=== PATIENT | male | born 1935 | race Caucasian/White ===

== ENCOUNTER → 2018-08-05 | Outpatient (REF) | payer MEDICARE ==
[~2018-08-05] MED LIST: FLOMAX0.4 M1 PO; LIPITOR10 M1 PO; PLAVIX75 MG PO; ZETIA10 MG PO
[2018-08-05 08:33] LABS: HEMATOCRIT 42.9 % (39.0-50.0); HEMOGLOBIN 14.6 g/dl (14.0-18.0); IMMATURE GRANULOCYTES 0.3 % (0.0-5.0); MEAN CELL VOLUME 103.6 fL CALC (80.0-100.0); MEAN CORPUSCULAR HGB 35.3 pG CALC (26.0-32.0); NEUT# 4.02 thou/uL (1.82-7.42); RED BLOOD COUNT 4.14 mill/uL (4.70-6.10); RED CELL DISTRI WIDTH 12.8 % (11.5-15.5)
[2018-08-05 09:47] LABS: ALBUMIN 3.9 g/dL (3.2-5.0); BILIRUBIN, TOTAL 0.9 mg/dL (0.0-1.4); CHOLESTEROL HDL RATIO 2.8 (<4.4 (CALC)); CREATININE 1.4 mg/dL (0.7-1.3); POTASSIUM 4.6 mmol/l (3.5-5.1); TOTAL PROTEIN 6.6 g/dL (6.3-8.2)
== END | disposition home or self-care (01) ==
LOC: LAB 07:23
PROVIDERS: ATTEND Internal Medicine
DX: E03.9 Hypothyroidism, unspecified (principal); E11.65 Type 2 diabetes mellitus with hyperglycemia; E78.49 Other hyperlipidemia; I10 Essential (primary) hypertension